=== PATIENT | female | born 1995 | race Caucasian/White ===

== ENCOUNTER 2019-04-15 11:27 | Inpatient (IN) | payer MEDICAID ==
[~2019-04-15] VITALS: Ht 167.6 cm; Wt 99.3 kg
[~2019-04-15 11:27] MED LIST: PREN-93 PO
[2019-04-15 11:40] VITALS: BP 124/74; PULSE 82; RESP 18; Ht 167.6 cm; Wt 99.3 kg
[2019-04-15] MEDS ORDERED: LACTATED RINGER'S 1,000 ML IV SCH (11:50)
[2019-04-15] MEDS ORDERED: ACETAMINOPHEN 1000MG/100ML IV 100 ML IVPB ONE (12:00)
[2019-04-15] MEDS: ONDANSETRON 4 MG INJ IV PRN ×2 (13:52→21:42)
[2019-04-15] MEDS ORDERED: RANITIDINE 150 MG TAB PO SCH (14:30)
[2019-04-15] MEDS ORDERED: morphine 4 MG/ML VIAL IV STA (16:52)
[2019-04-15] MEDS ORDERED: PANTOPRAZOLE 40 MG INJ IV ONE (17:00)
[2019-04-15] MEDS: DEXTROSE 5%-LR 1,000 ML IV SCH (17:08)
[2019-04-15 20:00] VITALS: BP 108/65; PULSE 95; RESP 18
[2019-04-15] MEDS: morphine 4 MG/ML VIAL IV PRN (21:24)
[2019-04-15 21:30] VITALS: BP 138/75; PULSE 98; RESP 18
[2019-04-15 22:30] VITALS: BP 119/66; PULSE 93; RESP 19
[2019-04-15 23:30] VITALS: BP 159/87; PULSE 93; RESP 18
[2019-04-15] MEDS: BETAMET NA PHOS/AC (6 MG/ML) 2 ML INJ SYG IM SCH (23:50)
[2019-04-16] VITALS (8 sets, daily range): BP systolic 112–178; BP diastolic 50–96; PULSE 88–110; RESP 18–19
[2019-04-16] MEDS: DEXTROSE 5%-LR 1,000 ML IV SCH ×3 (01:15→20:30)
[2019-04-16] MEDS: morphine 4 MG/ML VIAL IV PRN ×6 (01:16→22:27)
[2019-04-16] MEDS: ONDANSETRON 4 MG INJ IV PRN (05:29)
[2019-04-16] MEDS: PANTOPRAZOLE 40 MG INJ IV SCH (05:30)
[2019-04-16] MEDS ORDERED: BISACODYL 10 MG SUPP PR ONE (08:00)
[2019-04-16] MEDS ORDERED: PIPER-TAZO 3.375 GM IV (PMX) 100 ML IVPB SCH (11:00)
[2019-04-16] MEDS: PIPER-TAZO 3.375 GM IV (PMX) 100 ML IVPB SCH ×3 (11:21→23:49)
[2019-04-16] MEDS ORDERED: ACETAMINOPHEN 500 MG TAB PO STA (16:27)
[2019-04-16] MEDS ORDERED: MAGNESIUM HYDROXIDE 30ML CUP PO ONE (17:30)
[2019-04-16] MEDS: BETAMET NA PHOS/AC (6 MG/ML) 2 ML INJ SYG IM SCH (23:50)
[2019-04-17] MEDS: PANTOPRAZOLE 40 MG INJ IV SCH (05:30)
[2019-04-17] MEDS: DEXTROSE 5%-LR 1,000 ML IV SCH ×2 (05:30→11:07)
[2019-04-17] MEDS: PIPER-TAZO 3.375 GM IV (PMX) 100 ML IVPB SCH ×2 (05:31→11:12)
[2019-04-17 05:35] VITALS: BP 121/59; PULSE 107; RESP 18
[2019-04-17] MEDS: morphine 4 MG/ML VIAL IV PRN (09:31)
== END 2019-04-17 12:39 | disposition short-term general hospital (02) | DRG 833 ==
LOC: OBT 11:27 → L-D 11:27 → OBT 11:44 → L-D 11:52 → PP1 12:56
PROVIDERS: ADMIT Obstetrics & Gynecology; ATTEND Obstetrics & Gynecology
DX: O26.893 Other specified pregnancy related conditions, third trimester (principal); K43.9 Ventral hernia without obstruction or gangrene; Z3A.28 28 weeks gestation of pregnancy
CPT/HCPCS: 74181; 76705; 76775; 76815; 76817; 76818; 80053; 81001; 81003; 82550; 82553; 83690; 84484; 85025; 85610; 85730; 87086; 93005; C9113; G0463; J0131; J0702; J2270; J2405; J2543; J7120; J7121